=== PATIENT | female | born 2005 | race African-American/Black ===

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

== ENCOUNTER 2025-04-01 00:57 | Emergency (ER) | payer SELFPAY ==
[~2025-04-01] VITALS: Ht 165.1 cm; Wt 56.0 kg
[2025-04-01 01:03] VITALS: O2SAT 100
[2025-04-01 01:09] VITALS: BP 117/80; PULSE 75; RESP 16; TEMP 36.9; O2SAT 100
== END 2025-04-01 06:28 | disposition home or self-care (01) ==
LOC: ER 00:57
DX: R09.A2 Foreign body sensation, throat (principal)
CPT/HCPCS: 70360; 99283